=== PATIENT | male | born 1995 | race Two or more races ===

== ENCOUNTER 2017-08-11 15:17 | Outpatient (CLI) | payer BC | END 2017-08-11 23:59 | disposition home or self-care (01) | LOC: RAD 15:17 | PROVIDERS: ATTEND Legal Medicine | DX: R05 Cough (principal) | CPT/HCPCS: 71046 ==

== ENCOUNTER 2017-09-23 13:18 | Outpatient (CLI) | payer BC | END 2017-09-23 23:59 | disposition home or self-care (01) | LOC: US 13:18 | PROVIDERS: ATTEND Legal Medicine | DX: N45.1 Epididymitis (principal); N43.2 Other hydrocele | CPT/HCPCS: 76870-TC ==

== ENCOUNTER 2020-12-26 13:02 | Emergency (ER) | payer BC ==
[~2020-12-26] VITALS: Ht 170.2 cm; Wt 61.2 kg
--- NOTE | 2020-12-26 13:30 | NUR ---
HEALTH POLICY NURSE AT BEDSIDE FOR ULTRASOUND.
--- NOTE | 2020-12-26 13:48 | NUR ---
ANUPAM [phone] STACY
[2020-12-26 14:34] LABS: BILIRUBIN,URINE Negative (NEGATIVE); COLOR,URINE LIGHT YELLOW (YELLOW); LEUKOCYTE ESTERASE ,URINE Negative (NEGATIVE); NITRITE, URINE Negative (NEGATIVE); PROTEIN,URINE Negative (NEGATIVE); UGLUCOSE Negative (NEGATIVE); UROBILINOGEN,URINE 0.2 EU/dL (0.2)
[2020-12-26] MEDS ORDERED: CEFTRIAXONE 500 MG VIAL IM ONE (15:00)
[2020-12-26 15:03] LABS: BACTERIA,URINE Rare /HPF (None Seen); RBC,URINE NONE SEEN /HPF (0-2); SQUAMOUS EPITHELIAL CELL,UR Rare /HPF (None Seen); WBC,URINE 0-2 /HPF (0-3)
[2020-12-26] MEDS ORDERED: LIDOCAINE /MPF 1% VIAL 5 ML VIAL ONE (15:04)
[2020-12-26] MEDS ORDERED: CEFTRIAXONE 500 MG VIAL ONE (15:04)
[2020-12-26] MEDS ORDERED: IBUP-1955 PO (15:08)
[2020-12-26] MEDS ORDERED: DOXY100C2 PO (15:08)
[2020-12-26 15:18] VITALS: BP 127/67
--- NOTE | 2020-12-26 15:19 | NUR ---
Patient discharged to home in stable condition. Written and verbal after care instructions given. Patient verbalizes understanding of instruction.
== END 2020-12-26 15:19 | disposition home or self-care (01) ==
LOC: ER 13:02
DX: A64 Unspecified sexually transmitted disease (principal); N50.811 Right testicular pain; J45.909 Unspecified asthma, uncomplicated
CPT/HCPCS: 76870; 81001; 87491; 87591; 96372; 99284; J0696; J3490

== ENCOUNTER 2022-02-06 08:56 | Outpatient (CLI) | payer BC ==
[~2022-02-06 08:56] MED LIST: DOXY100C2 PO; IBUP-1955 PO
[2022-02-06 09:38] LABS: BASOPHILS % (AUTO) 0.5 % (0.0-2.0); EOSINOPHILS % (AUTO) 2.5 % (0.0-6.0); HEMATOCRIT 45 % (39-51); HEMOGLOBIN 15.2 g/dL (13.5-17.5); LYMPHOCYTES # (AUTO) 1.8 K/uL (0.8-4.8); LYMPHOCYTES % (AUTO) 33.1 % (20.0-44.0); MEAN CORPUSCULAR HGB CONC 34 g/dl (31.0-36.0); MEAN CORPUSCULAR VOLUME 87 fL (80-96); MONOCYTES # (AUTO) 0.4 K/uL (0.1-1.30); MONOCYTES % (AUTO) 7.8 % (2.0-12.0); NEUTROPHILS % (AUTO) 56.1 % (43.0-81.0); PLATELET COUNT (AUTO) 230 K/uL (150-450); WHITE BLOOD COUNT (AUTO) 5.4 K/uL (4.3-11.0)
[2022-02-06 09:39] LABS: BILIRUBIN,URINE NEGATIVE (NEGATIVE); COLOR,URINE YELLOW (YELLOW); LEUKOCYTE ESTERASE ,URINE NEGATIVE (NEGATIVE); NITRITE, URINE NEGATIVE (NEGATIVE); PROTEIN,URINE NEGATIVE (NEGATIVE); UGLUCOSE NEGATIVE (NEGATIVE); UROBILINOGEN,URINE 0.2 EU/dL (0.2)
[2022-02-06 10:31] LABS: THYROID STIMULATING HORMONE 2.013 uIU/mL (0.358-3.74)
[2022-02-06 10:39] LABS: ALBUMIN 4.5 g/dL (3.4-5.0); BILIRUBIN,TOTAL 0.6 mg/dL (0.2-1.0); CALCIUM, SERUM 8.9 mg/dL (8.5-10.1); CREATININE 1.5 mg/dL (0.6-1.3); POTASSIUM 4.2 mmol/L (3.5-5.1); TOTAL PROTEIN, SERUM 7.9 g/dL (6.4-8.2)
== END 2022-02-06 23:59 | disposition home or self-care (01) ==
LOC: LAB 08:56
PROVIDERS: ATTEND Legal Medicine
DX: Z00.00 Encounter for general adult medical examination without abnormal findings (principal); E78.00 Pure hypercholesterolemia, unspecified; I10 Essential (primary) hypertension; E11.9 Type 2 diabetes mellitus without complications; E03.9 Hypothyroidism, unspecified; E55.9 Vitamin D deficiency, unspecified
CPT/HCPCS: 36415; 80053-TC; 80061-TC; 82306; 82607-TC; 82728-TC; 83540-TC; 84402; 84403; 84443-TC; 85025-TC